=== PATIENT | female | born 1990 | race African-American/Black ===

== ENCOUNTER 2024-09-21 15:42 | Emergency (ER) | payer MEDICAID ==
[~2024-09-21] VITALS: Ht 172.7 cm; Wt 90.0 kg
[2024-09-21 15:44] VITALS: TEMP 36.9; O2SAT 98
[2024-09-21] MEDS: OXYCODONE HCL/ACETAMINOPHEN 5/325MG TABLET PO ONE (16:00)
[2024-09-21] MEDS ORDERED: IBUP-2030 MT (19:58)
[2024-09-21 21:43] VITALS: BP 122/77; PULSE 68; RESP 16; O2SAT 98
== END 2024-09-21 21:47 | disposition home or self-care (01) ==
LOC: ER 15:42
DX: S82.141A Displaced bicondylar fracture of right tibia, initial encounter for closed fracture (principal); S82.831A Other fracture of upper and lower end of right fibula, initial encounter for closed fracture; Z88.6 Allergy status to analgesic agent; W18.2XXA Fall in (into) shower or empty bathtub, initial encounter; Y93.89 Activity, other specified; Y92.89 Other specified places as the place of occurrence of the external cause; Y99.8 Other external cause status
CPT/HCPCS: 29505; 73552; 73562; 73590; 99284